=== PATIENT | female | born 1980 | race Caucasian/White ===

== ENCOUNTER → 2025-06-25 | Outpatient (CLI) | payer OTHER | LOC: M WHC 11:56 | DX: N63.25 Unspecified lump in the left breast, overlapping quadrants (principal) ==

== ENCOUNTER → 2025-07-09 | Outpatient (CLI) | payer OTHER ==
[2025-07-09 10:53] VITALS: TEMP 98.4
[2025-07-09 11:48] VITALS: BP 140/92; O2SAT 99
== END ==
LOC: M WHCPRO 09:28
DX: N63.42 Unspecified lump in left breast, subareolar (principal)